=== PATIENT | female | born 1935 | race Caucasian/White ===

== ENCOUNTER 2022-06-16 09:52 | Inpatient (IN) ==
[2022-06-16 10:55] LABS: ABS Lymphocytes 0.8 10^3/ul (1.0-4.8); ABS Monocytes 0.9 10^3/ul (0-0.8); ABS Neutrophils 8.4 10^3/ul (1.5-7.7); Hematocrit 32 % (35-47); Hemoglobin 10.7 g/dL (12.0-16.0); Lymphocyte % 8.2 %; Mean Corpuscular HGB Conc 34 g/dL (31-36); Mean Corpuscular Hemoglobin 32 pg (27-31); Mean Corpuscular Volume 93 fL (80-97); Mean Platelet Volume 8.7 fL (7.4-10.4); Nucleated Red Blood Cells % 0.1; Platelet Count 285 10^3/uL (150-450); Red Blood Count 3.39 10^6 /uL (3.70-4.87); Red Cell Distribution Width 16 % (10-15); White Blood Count 10.2 10^3/uL (3.5-10.8)
[2022-06-16 12:08] LABS: Albumin 3.6 g/dL (3.2-5.2); Albumin/Globulin Ratio 1.1 (1-3); Calcium 8.6 mg/dL (8.6-10.3); Globulin 3.2 g/dL (2-4); Potassium 3.2 mmol/L (3.5-5.0); Total Bilirubin 0.5 mg/dL (0.2-1.0); Total Protein 6.8 g/dL (6.4-8.9); eGFR CKD-EPI 93.1 (>60)
[2022-06-16 12:26] LABS: High Sensitivity Troponin 1 Hr 28 pg/mL (<15); Urine Appearance Clear; Urine Bilirubin Negative (Negative); Urine Blood Trace (Intact) (Negative); Urine Color Yellow; Urine Glucose Negative (Negative); Urine Ketones 3+ (80mg/dL) (Negative); Urine Nitrite Negative (Negative); Urine Protein 2+ (100 mg/dL) (Negative)
[2022-06-16 12:39] LABS: Urine Bacteria Absent (Absent); Urine Red Blood Cell Trace(0-2/hpf) (Absent); Urine Squamous Epithelial Cell Present (Absent); Urine White Blood Cell Trace(0-5/hpf) (Absent)
[2022-06-16] MEDS ORDERED: Lidocaine PATCH 5% PATCH TRANSDERM ONE (15:16)
[2022-06-17 05:49] LABS: Hematocrit 29 % (35-47); Hemoglobin 9.7 g/dL (12.0-16.0); Mean Corpuscular HGB Conc 34 g/dL (31-36); Mean Corpuscular Hemoglobin 31 pg (27-31); Mean Corpuscular Volume 93 fL (80-97); Mean Platelet Volume 7.1 fL (7.4-10.4); Platelet Count 232 10^3/uL (150-450); Red Blood Count 3.08 10^6 /uL (3.70-4.87); Red Cell Distribution Width 16 % (10-15); White Blood Count 6.2 10^3/uL (3.5-10.8)
[2022-06-17 06:41] LABS: Potassium 3.4 mmol/L (3.5-5.0)
[2022-06-17 06:58] LABS: eGFR CKD-EPI 87.5 (>60)
[2022-06-17 06:59] LABS: Calcium 8.6 mg/dL (8.6-10.3)
[2022-06-17 08:30] LABS: ABS Eosinophils 0.1 10^3/ul (0-0.6); ABS Lymphocytes 1.1 10^3/ul (1.0-4.8); ABS Monocytes 0.8 10^3/ul (0-0.8); ABS Neutrophils 4.1 10^3/ul (1.5-7.7); Eosinophil % 0.8 %; Lymphocyte % 18.3 %; Nucleated Red Blood Cells % 0.2
[2022-06-17] MEDS: Lidocaine PATCH 5% PATCH TRANSDERM SCH (08:46)
[2022-06-17] MEDS ORDERED: Potassium Chloride LIQUID 20 MEQ/15 ML LIQUID PO ONE (08:46)
[2022-06-17] MEDS ORDERED: Influenza vaccine *QUAD* *2022-23* 0.5 ML SYRINGE IM ONE (09:00)
[2022-06-17] MEDS ORDERED: Iohexol 350 (CONTRAST) 500 ML MDV IV ONE (11:11)
[2022-06-17] MEDS ORDERED: COVID VACC, BIVAL PFIZER-TRIS 30 MCG/0.3 ML SYR IM ONE (11:30)
[2022-06-17] MEDS ORDERED: Morphine 2 MG/ML SYRINGE IV PRN (12:39)
[2022-06-17] MEDS: Enoxaparin 40 MG/0.4 ML SYR SUBCUT SCH (12:50)
[2022-06-18 05:08] LABS: Hematocrit 26 % (35-47); Hemoglobin 8.8 g/dL (12.0-16.0); Mean Corpuscular HGB Conc 34 g/dL (31-36); Mean Corpuscular Hemoglobin 32 pg (27-31); Mean Corpuscular Volume 93 fL (80-97); Mean Platelet Volume 8.7 fL (7.4-10.4); Platelet Count 249 10^3/uL (150-450); Red Blood Count 2.79 10^6 /uL (3.70-4.87); Red Cell Distribution Width 16 % (10-15); White Blood Count 5.7 10^3/uL (3.5-10.8)
[2022-06-18 05:22] LABS: ABS Eosinophils 0.1 10^3/ul (0-0.6); ABS Lymphocytes 1.2 10^3/ul (1.0-4.8); ABS Monocytes 0.9 10^3/ul (0-0.8); ABS Neutrophils 3.5 10^3/ul (1.5-7.7); Eosinophil % 1.5 %; Lymphocyte % 21.2 %; Nucleated Red Blood Cells % 0.1
[2022-06-18 05:23] LABS: Calcium 8.7 mg/dL (8.6-10.3); Magnesium 1.5 mg/dL (1.9-2.7); Potassium 4.3 mmol/L (3.5-5.0); eGFR CKD-EPI 83.9 (>60)
[2022-06-18] MEDS ORDERED: Magnesium Sulfate IV 3 GM in NS 0.9% 100 ml BAG 100 ML IVPB ONE (11:00)
[2022-06-18] MEDS: Lidocaine PATCH 5% PATCH TRANSDERM SCH (12:10)
[2022-06-18] MEDS: Enoxaparin 40 MG/0.4 ML SYR SUBCUT SCH (12:13)
[2022-06-18 12:26] LABS: Kappa Free Light Chain 3.31 mg/dL; Lambda Free Light Chain, S 2.69 mg/dL
[2022-06-19 00:38] LABS: Albumin 2.6 g/dL (3.4-4.7); Albumin/Globulin Ratio 0.79; Total Protein(PEP) 5.9 g/dL (6.3 - 7.9)
[2022-06-19 09:40] LABS: Hematocrit 26 % (35-47); Hemoglobin 8.8 g/dL (12.0-16.0); Mean Corpuscular HGB Conc 34 g/dL (31-36); Mean Corpuscular Hemoglobin 31 pg (27-31); Mean Corpuscular Volume 93 fL (80-97); Platelet Count 233 10^3/uL (150-450); Red Blood Count 2.84 10^6 /uL (3.70-4.87); Red Cell Distribution Width 16 % (10-15); White Blood Count 3.8 10^3/uL (3.5-10.8)
[2022-06-19] MEDS: Lidocaine PATCH 5% PATCH TRANSDERM SCH (09:53)
[2022-06-19 10:11] LABS: Calcium 8.4 mg/dL (8.6-10.3); Magnesium 1.9 mg/dL (1.9-2.7); Potassium 4.2 mmol/L (3.5-5.0); eGFR CKD-EPI 86.8 (>60)
[2022-06-19] MEDS ORDERED: Senna TAB 8.6 mg TAB PO PRN (10:16)
[2022-06-19 10:47] LABS: ABS Eosinophils 0.1 10^3/ul (0-0.6); ABS Lymphocytes 0.7 10^3/ul (1.0-4.8); ABS Monocytes 0.7 10^3/ul (0-0.8); ABS Neutrophils 2.3 10^3/ul (1.5-7.7); Eosinophil % 1.9 %; Lymphocyte % 17.1 %; Nucleated Red Blood Cells % 0.2
[2022-06-19] MEDS: Magnesium Hydroxide LIQ 30 ML UDC PO PRN (12:26)
[2022-06-19] MEDS: Enoxaparin 40 MG/0.4 ML SYR SUBCUT SCH (12:26)
[2022-06-19] MEDS ORDERED: Iohexol 350 (CONTRAST) 500 ML MDV IV ONE (16:00)
[2022-06-19] MEDS ORDERED: Enoxaparin 60 MG/0.6 ML SYR SUBCUT ONE (18:16)
[2022-06-19 18:47] LABS: Vitamin D Total 25(OH) 41.3 ng/mL (20-50)
[2022-06-19 21:57] LABS: Osmolality Serum 270 mOsm/kg (275-295)
[2022-06-19 23:59] LABS: Urine Osmo 595 mOsm/kg (150-1150)
[2022-06-20 07:12] LABS: Hematocrit 25 % (35-47); Hemoglobin 8.6 g/dL (12.0-16.0); Mean Corpuscular HGB Conc 34 g/dL (31-36); Mean Corpuscular Hemoglobin 32 pg (27-31); Mean Corpuscular Volume 93 fL (80-97); Mean Platelet Volume 7.8 fL (7.4-10.4); Platelet Count 231 10^3/uL (150-450); Red Blood Count 2.73 10^6 /uL (3.70-4.87); Red Cell Distribution Width 16 % (10-15); White Blood Count 3.6 10^3/uL (3.5-10.8)
[2022-06-20 07:19] LABS: Activated Partial Thrombo Time 31.4 seconds (26.0-38.0); INR 1.03 (0.89-1.11)
[2022-06-20 07:46] LABS: Calcium 8.5 mg/dL (8.6-10.3); Potassium 4.5 mmol/L (3.5-5.0); eGFR CKD-EPI 92.1 (>60)
[2022-06-20 08:00] LABS: ABS Eosinophils 0.2 10^3/ul (0-0.6); ABS Lymphocytes 0.8 10^3/ul (1.0-4.8); ABS Monocytes 0.7 10^3/ul (0-0.8); ABS Neutrophils 1.9 10^3/ul (1.5-7.7); Eosinophil % 5.5 %; Lymphocyte % 22.6 %; Nucleated Red Blood Cells % 0.1
[2022-06-20] MEDS: Lidocaine PATCH 5% PATCH TRANSDERM SCH (09:46)
[2022-06-20] MEDS ORDERED: Enoxaparin 80 MG/0.8 ML SYR SUBCUT ONE (20:00)
[2022-06-21 06:25] LABS: Hematocrit 25 % (35-47); Hemoglobin 8.3 g/dL (12.0-16.0); Mean Corpuscular HGB Conc 33 g/dL (31-36); Mean Corpuscular Hemoglobin 31 pg (27-31); Mean Corpuscular Volume 93 fL (80-97); Mean Platelet Volume 7.9 fL (7.4-10.4); Platelet Count 248 10^3/uL (150-450); Red Blood Count 2.69 10^6 /uL (3.70-4.87); Red Cell Distribution Width 16 % (10-15); White Blood Count 4.4 10^3/uL (3.5-10.8)
[2022-06-21 06:47] LABS: ABS Basophils 0.1 10^3/ul (0-0.2); ABS Eosinophils 0.2 10^3/ul (0-0.6); ABS Monocytes 0.6 10^3/ul (0-0.8); ABS Neutrophils 2.4 10^3/ul (1.5-7.7); Eosinophil % 5.4 %; Lymphocyte % 23.9 %
[2022-06-21 07:22] LABS: Calcium 8.8 mg/dL (8.6-10.3); Potassium 4.8 mmol/L (3.5-5.0); eGFR CKD-EPI 89.9 (>60)
[2022-06-21 07:23] LABS: TSH Ultra Thyroid Stim Horm 3.26 mcIU/mL (0.34-5.60)
[2022-06-21] MEDS: Lidocaine PATCH 5% PATCH TRANSDERM SCH (09:30)
[2022-06-21 12:17] LABS: Corrected Retic Count 0.8 % (0.5-1.5); Hematocrit for Retic CNT 25 % (35-47); Immature Retic Fraction 0.47; RBC Retic Count 2.71 10^6/uL (3.70-4.87)
[2022-06-21 12:22] LABS: Ferritin 377.1 ng/mL (11-307)
[2022-06-21] MEDS: Enoxaparin 80 MG/0.8 ML SYR SUBCUT SCH (20:38)
[2022-06-22 06:16] LABS: ABS Eosinophils 0.3 10^3/ul (0-0.6); ABS Lymphocytes 1.2 10^3/ul (1.0-4.8); ABS Monocytes 0.7 10^3/ul (0-0.8); ABS Neutrophils 2.5 10^3/ul (1.5-7.7); Eosinophil % 5.3 %; Hematocrit 27 % (35-47); Lymphocyte % 26.2 %; Mean Corpuscular HGB Conc 34 g/dL (31-36); Mean Corpuscular Hemoglobin 31 pg (27-31); Mean Corpuscular Volume 93 fL (80-97); Mean Platelet Volume 7.5 fL (7.4-10.4); Nucleated Red Blood Cells % 0.1; Platelet Count 278 10^3/uL (150-450); Red Blood Count 2.88 10^6 /uL (3.70-4.87); Red Cell Distribution Width 16 % (10-15); White Blood Count 4.7 10^3/uL (3.5-10.8)
[2022-06-22 06:38] LABS: Calcium 8.9 mg/dL (8.6-10.3); Potassium 4.5 mmol/L (3.5-5.0); eGFR CKD-EPI 88.3 (>60)
[2022-06-22] MEDS: Enoxaparin 80 MG/0.8 ML SYR SUBCUT SCH (07:58)
[2022-06-22] MEDS: Lidocaine PATCH 5% PATCH TRANSDERM SCH (07:59)
[2022-06-23 05:05] LABS: Hematocrit 25 % (35-47); Hemoglobin 8.2 g/dL (12.0-16.0); Mean Corpuscular HGB Conc 33 g/dL (31-36); Mean Corpuscular Hemoglobin 31 pg (27-31); Mean Corpuscular Volume 93 fL (80-97); Platelet Count 277 10^3/uL (150-450); Red Blood Count 2.69 10^6 /uL (3.70-4.87); Red Cell Distribution Width 16 % (10-15); White Blood Count 4.6 10^3/uL (3.5-10.8)
[2022-06-23 05:31] LABS: Calcium 8.8 mg/dL (8.6-10.3); Potassium 4.7 mmol/L (3.5-5.0); eGFR CKD-EPI 86.8 (>60)
[2022-06-23 10:15] LABS: Albumin 80.4 mg/dL; Gamma Globulin 14.7 mg/dL; Protein,Total, Random Urine 134 mg/dL
[2022-06-23] MEDS: Lidocaine PATCH 5% PATCH TRANSDERM SCH (11:06)
[2022-06-23] MEDS ORDERED: fentaNYL 100 mcg/2 ml 50 MCG/ML VIAL ONE (13:52)
[2022-06-23] MEDS: Magnesium Hydroxide LIQ 30 ML UDC PO PRN (18:02)
[2022-06-24] MEDS: Lidocaine PATCH 5% PATCH TRANSDERM SCH (08:17)
[2022-06-24] MEDS ORDERED: CMC: Calcitonin NASAL(NF) 200 UNITS/SPRAY NASAL.SPR ALT NARE SCH (09:00)
[2022-06-24 15:41] VITALS: BP 132/75
== END 2022-06-24 16:45 | disposition swing bed (61) | DRG 477 ==
LOC: EDHOLD 09:52 → ED 09:52 → SSU 15:33 → SUATTDRO 06-17 09:25
PROVIDERS: ADMIT Internal Medicine; ATTEND Pediatrics